=== PATIENT | male | born 1970 | race Caucasian/White ===

== ENCOUNTER 2021-08-20 17:54 | Inpatient (IN) | payer OTHER ==
[~2021-08-20] VITALS: Ht 180.3 cm; Wt 149.7 kg
[2021-08-20 17:57] VITALS: BP_SYST 103
[2021-08-20] MEDS ORDERED: PIPERACILLIN/TAZO 3.38 GM in D5W 50 ML IV ONE (18:30)
[2021-08-20] MEDS ORDERED: NS 1000 ML IV.SOLN IV ONE (18:30)
[2021-08-20] MEDS ORDERED: VANCOMYCIN HCL 1,000 MG in D5W 250 ML IV ONE (18:30)
[2021-08-20] MEDS ORDERED: PIPERACILLIN/TAZOBACTAM 3.375 GM/VIAL (ZOSYN) IV ONE (18:51)
[2021-08-20] MEDS ORDERED: VANCOMYCIN HCL 1000 MG/VIAL IV ONE (18:52)
[2021-08-20 19:05] LABS: BASOPHILS # (AUTO) 0.1 K/uL (0.0-0.2); BASOPHILS % (AUTO) 0.8 % (0.0-2.0); EOSINOPHILS # (AUTO) 0.3 K/uL (0.0-0.4); EOSINOPHILS % (AUTO) 3.4 % (0.0-4.0); HEMATOCRIT 31.7 % (36-54); HEMOGLOBIN 11.1 g/dL (14.0-18.0); LYMPHOCYTES # (AUTO) 0.9 K/uL (1.0-5.5); LYMPHOCYTES % (AUTO) 10.6 % (20.5-51.5); MEAN CORPUSCULAR HEMOGLOBIN 35 pg (27-31); MEAN CORPUSCULAR HGB CONC 35 % (32-36); MEAN CORPUSCULAR VOLUME 99 fL (79.0-98.0); MONOCYTES # (AUTO) 0.5 K/uL (0.0-1.0); MONOCYTES % (AUTO) 6.1 % (1.7-9.3); NEUTROPHILS % (AUTO) 79.1 % (40.0-70.0); PLATELET COUNT (AUTO) 284 K/uL (130-430); RED CELL DISTRIBUTION WIDTH 14.3 % (9.0-15.0); WHITE BLOOD COUNT (AUTO) 8.9 K/uL (4.8-10.8)
[2021-08-20 19:15] LABS: ANION GAP 12 (5-15); CALCIUM 9.2 mg/dL (8.4-11.0); CHLORIDE 97 mmol/L (98-107); GLUCOSE 109 mg/dL (70-99); SODIUM SERUM 137 mmol/L (136-145); UREA NITROGEN, BLOOD 3 mg/dL (8-21)
[2021-08-20 19:23] LABS: GFR AFRICAN AMERICAN 91 mL/min (>90)
[2021-08-20 19:24] LABS: ALANINE AMINOTRANSFERASE 55 U/L (12-78); ALBUMIN 2.4 g/dL (3.4-4.8); ASPARTATE AMINOTRANSFERASE 53 U/L (10-37); POTASSIUM 2.4 mmol/L (3.5-5.1); TOTAL BILIRUBIN 0.9 mg/dL (0.0-1.0)
[2021-08-20] MEDS ORDERED: POTASSIUM CHLORIDE 20 MEQ/PKT PACKET PO ONE ×2 (19:45)
[2021-08-20] MEDS ORDERED: POTASSIUM CHLORIDE 10 MEQ in NACL 0.9% 1,000 ML IV SCH ×4 (19:45)
[2021-08-20] MEDS ORDERED: KCL 20 mEq in 100 mL (PREMIX) 100 ML IV ONE ×2 (19:57→20:00)
[2021-08-20 21:22] LABS: C-REACTIVE PROTEIN QUANT 20.4 mg/dL (0-0.5)
[2021-08-20] MEDS ORDERED: KCL 20 mEq in D5NS 1000 mL 1,000 ML IV SCH (21:45)
[2021-08-20 23:38] VITALS: BP_SYST 130
[2021-08-20] MEDS ORDERED: ACETAMINOPHEN 325 MG TABLET PO PRN (23:45)
[2021-08-21] VITALS (8 sets, daily range): BP systolic 105–132
[2021-08-21] MEDS ORDERED: OXYC-128 PO (00:17)
[2021-08-21] MEDS ORDERED: LOSA50TA3 PO (00:18)
[2021-08-21] MEDS ORDERED: ASPI-862 PO (00:19)
[2021-08-21] MEDS ORDERED: ONDA4TAB55 PO (00:20)
[2021-08-21] MEDS ORDERED: PIPERACILLIN/TAZOBACTAM 3.375 GM/VIAL (ZOSYN) IV ONE (01:21)
[2021-08-21] MEDS ORDERED: KCL 20 mEq in D5NS 1000 mL 1,000 ML IV ONE (01:21)
[2021-08-21] MEDS: PIPERACILLIN/TAZO 3.375/DEX-IS 50 ML IV SCH ×4 (01:30→22:24)
[2021-08-21] MEDS: FAMOTIDINE 20 MG TABLET PO SCH ×2 (01:37→09:57)
[2021-08-21] MEDS ORDERED: METOPROLOL TARTRATE 50 MG TABLET PO ONE (04:30)
[2021-08-21] MEDS ORDERED: *LOVENOX 1MG/KG Q24H/PHARMACY XX PRN (04:45)
[2021-08-21] MEDS: ENOXAPARIN SODIUM 100 MG/ML SYRINGE SUBCUT SCH ×2 (05:07→16:57)
[2021-08-21 06:46] LABS: BASOPHILS # (AUTO) 0.1 K/uL (0.0-0.2); BASOPHILS % (AUTO) 0.9 % (0.0-2.0); EOSINOPHILS # (AUTO) 0.3 K/uL (0.0-0.4); HEMATOCRIT 28.7 % (36-54); HEMOGLOBIN 9.9 g/dL (14.0-18.0); LYMPHOCYTES # (AUTO) 0.9 K/uL (1.0-5.5); LYMPHOCYTES % (AUTO) 12.8 % (20.5-51.5); MEAN CORPUSCULAR HEMOGLOBIN 34 pg (27-31); MEAN CORPUSCULAR HGB CONC 35 % (32-36); MEAN CORPUSCULAR VOLUME 100 fL (79.0-98.0); MONOCYTES # (AUTO) 0.7 K/uL (0.0-1.0); MONOCYTES % (AUTO) 9.6 % (1.7-9.3); NEUTROPHILS # (AUTO) 5.4 K/uL (1.8-7.7); NEUTROPHILS % (AUTO) 72.7 % (40.0-70.0); PLATELET COUNT (AUTO) 239 K/uL (130-430); RED BLOOD CELL COUNT(AUTO) 2.88 MIL/uL (4.2-6.2); RED CELL DISTRIBUTION WIDTH 14.3 % (9.0-15.0); WHITE BLOOD COUNT (AUTO) 7.4 K/uL (4.8-10.8)
[2021-08-21 07:26] LABS: CALCIUM 9.1 mg/dL (8.4-11.0); CREATININE 0.99 mg/dL (0.55-1.30)
[2021-08-21 08:00] LABS: POTASSIUM 2.5 mmol/L (3.5-5.1)
[2021-08-21] MEDS ORDERED: DIPHENHYDRAMINE HCL 50 MG CAPSULE PO ONE (08:30)
[2021-08-21] MEDS ORDERED: MAGNESIUM SULFATE 50 ML IV ONE (08:45)
[2021-08-21] MEDS ORDERED: iohexoL 350 mgI/mL, 100 ML INFUS..BTL IV ONE (09:52)
[2021-08-21] MEDS: POTASSIUM CHLORIDE 20 MEQ TAB.PRT.SR PO SCH ×3 (10:39→21:26)
[2021-08-21] MEDS: VANCOMYCIN HCL 1,500 MG in NS 250 ML IV SCH ×2 (10:41→19:25)
[2021-08-21] MEDS: KCL 20 mEq in D5NS 1000 mL 1,000 ML IV SCH (11:00)
[2021-08-21 19:36] LABS: CALCIUM 8.4 mg/dL (8.4-11.0); CREATININE 1.27 mg/dL (0.55-1.30)
[2021-08-21 19:41] LABS: POTASSIUM 2.8 mmol/L (3.5-5.1)
[2021-08-21 19:44] LABS: ALBUMIN 2.2 g/dL (3.4-4.8); TOTAL BILIRUBIN 0.6 mg/dL (0.0-1.0)
[2021-08-21] MEDS ORDERED: POTASSIUM CHLORIDE 20 MEQ TAB.PRT.SR PO ONE (21:00)
[2021-08-22] MEDS: KCL 20 mEq in D5NS 1000 mL 1,000 ML IV SCH ×2 (00:20→14:28)
[2021-08-22] MEDS: PIPERACILLIN/TAZO 3.375/DEX-IS 50 ML IV SCH ×3 (02:46→14:28)
[2021-08-22] MEDS: POTASSIUM CHLORIDE 20 MEQ TAB.PRT.SR PO SCH ×2 (02:47→09:31)
[2021-08-22] MEDS: VANCOMYCIN HCL 1,500 MG in NS 250 ML IV SCH ×3 (03:26→17:11)
[2021-08-22] MEDS: ENOXAPARIN SODIUM 100 MG/ML SYRINGE SUBCUT SCH ×2 (05:03→17:09)
[2021-08-22 07:09] LABS: BASOPHILS % (AUTO) 0.8 % (0.0-2.0); EOSINOPHILS # (AUTO) 0.4 K/uL (0.0-0.4); EOSINOPHILS % (AUTO) 5.4 % (0.0-4.0); HEMATOCRIT 29.5 % (36-54); HEMOGLOBIN 10.1 g/dL (14.0-18.0); LYMPHOCYTES # (AUTO) 1.3 K/uL (1.0-5.5); LYMPHOCYTES % (AUTO) 19.6 % (20.5-51.5); MEAN CORPUSCULAR HEMOGLOBIN 35 pg (27-31); MEAN CORPUSCULAR HGB CONC 34 % (32-36); MEAN CORPUSCULAR VOLUME 101 fL (79.0-98.0); MONOCYTES # (AUTO) 0.7 K/uL (0.0-1.0); MONOCYTES % (AUTO) 10.2 % (1.7-9.3); NEUTROPHILS # (AUTO) 4.1 K/uL (1.8-7.7); PLATELET COUNT (AUTO) 267 K/uL (130-430); RED BLOOD CELL COUNT(AUTO) 2.94 MIL/uL (4.2-6.2); RED CELL DISTRIBUTION WIDTH 14.5 % (9.0-15.0); WHITE BLOOD COUNT (AUTO) 6.4 K/uL (4.8-10.8)
[2021-08-22 08:02] LABS: ALBUMIN 2.3 g/dL (3.4-4.8); CALCIUM 9.2 mg/dL (8.4-11.0); CREATININE 1.2 mg/dL (0.55-1.30); THYROID STIMULATING HORMONE 1.57 uIu/mL (0.36-3.74); TOTAL BILIRUBIN 0.7 mg/dL (0.0-1.0)
[2021-08-22 08:15] VITALS: BP_SYST 129
[2021-08-22] MEDS: FAMOTIDINE 20 MG TABLET PO SCH (09:31)
[2021-08-22 12:30] VITALS: BP_SYST 129
[2021-08-22 14:06] LABS: INR 1.1 (0.80-1.20); PROTHROMBIN TIME 11.3 SECS (9.5-12.5)
[2021-08-22 15:59] VITALS: BP_SYST 129
[2021-08-22 16:00] VITALS: BP_SYST 129
[2021-08-22 19:21] VITALS: BP_SYST 129
[2021-08-22 20:00] VITALS: BP_SYST 135
== END 2021-08-22 23:23 | disposition short-term general hospital (02) | DRG 175 ==
LOC: SED 17:54 → STU 21:42
PROVIDERS: ADMIT Family Medicine; ATTEND Family Medicine
DX: I26.99 Other pulmonary embolism without acute cor pulmonale (principal); J18.9 Pneumonia, unspecified organism; E87.2 Acidosis; L03.115 Cellulitis of right lower limb; D62 Acute posthemorrhagic anemia; I82.402 Acute embolism and thrombosis of unspecified deep veins of left lower extremity; Z68.42 Body mass index [BMI] 45.0-49.9, adult; I10 Essential (primary) hypertension; Z96.651 Presence of right artificial knee joint; E66.01 Morbid (severe) obesity due to excess calories; Z20.822 Contact with and (suspected) exposure to COVID-19; E87.6 Hypokalemia; M17.11 Unilateral primary osteoarthritis, right knee; Z79.82 Long term (current) use of aspirin
CPT/HCPCS: 36415; 71045; 71275; 73564; 76376; 80048; 80053; 80061; 83605; 83735; 84443; 84484; 85025; 85379; 85610-TC; 85651-TC; 86140; 87040; 87081; 93005; 93970; 96365; 96366; 96367; 96368; 99291; G0378; J1650; J2543; J3370; J3475; J3480; J7030; J7050; Q0163; Q9967

== ENCOUNTER 2023-11-06 07:52 | Outpatient (CLI) | payer OTHER ==
[~2023-11-06 07:52] MED LIST: ASPI-862 PO; LOSA-413 PO; ONDA4TAB55 PO; OXYC-128 PO
[2023-11-06 09:10] LABS: BILIRUBIN,URINE NEGATIVE (NEGATIVE); BLOOD, URINE NEGATIVE (NEGATIVE); CLARITY/URINE CLEAR (CLEAR); COLOR,URINE YELLOW (YELLOW); GLUCOSE,URINE NEGATIVE (NEGATIVE); KETONES,URINE NEGATIVE (NEGATIVE); LEUKOCYTE ESTERASE ,URINE NEGATIVE (NEGATIVE); NITRITE, URINE NEGATIVE (NEGATIVE); PROTEIN URINE NEGATIVE (NEGATIVE); UROBILINOGEN,URINE 0.2 (0.2-1.0)
[2023-11-06 09:13] LABS: CALCIUM 8.7 mg/dL (8.4-11.0); CREATININE 0.94 mg/dL (0.55-1.30); POTASSIUM 3.9 mmol/L (3.5-5.1); THYROID STIMULATING HORMONE 1.16 uIu/mL (0.36-3.74)
== END 2023-11-06 20:04 | disposition home or self-care (01) ==
LOC: SRD 07:52 → SCA 20:04
PROVIDERS: ATTEND Hospitalist
DX: Z01.818 Encounter for other preprocedural examination (principal); I49.1 Atrial premature depolarization; M43.8X4 Other specified deforming dorsopathies, thoracic region
CPT/HCPCS: 36415; 71046; 80048; 81001; 81003; 84443; 93005; 93306